=== PATIENT | female | born 1975 | race Caucasian/White ===

== ENCOUNTER 2016-11-21 10:09 | Emergency (ER) | payer OTHER ==
[~2016-11-21] VITALS: Ht 160 cm; Wt 61.2 kg
[2016-11-21 10:22] VITALS: BP 142/81
--- NOTE | 2016-11-21 10:49 | ED UPPER/LOWER EXTREMITY COMPL ---
History of Present Illness General Chief Complaint: Laceration Procedure Stated Complaint: LAC TO LT HAND (FINGER) Source: patient Exam Limitations: no limitations Vital Signs & Intake/Output Vital Signs & Intake/Output Vital Signs Date Time Temp Pulse Resp B/P B/P Pulse O2 O2 Flow FiO2 Mean Ox Delivery Rate 11/21 1022 98.4 87 20 142/81 100 Room Air Allergies Coded Allergies: gluten (Intermediate, GI 11/21/16) Reconcile Medications No Known Home Medications Triage Note: PT TO ED C/O LAC TO LEFT HAND RING FINGER FROM SCISSORS. HAPPENED [employer]. PT WAS CUTTING FLOWER STEMS AND CUT HER FINGER. AVULSION NOTED. BLEEDING NOTED. DRESSING APPLIED. LAST TETANUS SHOT LAST YEAR PER PT. Triage Nurses Notes Reviewed? yes Onset: Abrupt Duration: constant Timing: single episode today Severity: mild Severity Numbers: 2 Method of Injury: laceration : No Patient currently breastfeeds: No HPI: Patient is a 40-year-old female who presents emergency room STATING today while cutting jimenes she accidentally cut the distal tip of her left fourth digit finger resulting in bleeding and the laceration. Currently complains of 3/10 pain. Patient is right arm dominant. Tetanus is up-to-date (LAURYN OLIVERA) Past History Travel History Traveled to [place] past 21 day No Medical History Any Pertinent Medical History? none Surgical History Surgical History: non-contributory Psychosocial History What is your primary language Slovak Tobacco Use: Never used ETOH Use: denies use Illicit Drug Use: denies illicit drug use Family History Hx Contributory? No (LAURYN OLIVERA) Review of Systems Review of Systems Constitutional: Reports: no symptoms. EENTM: Reports: no symptoms. Respiratory: Reports: no symptoms. Cardiovascular: Reports: no symptoms. Gastrointestinal/Abdominal: Reports: no symptoms. Genitourinary: Reports: no symptoms. Musculoskeletal: Reports: see HPI. Skin: Reports: see HPI. Neurological/Psychological: Reports: no symptoms. Hematologic/Endocrine: Reports: see HPI, bleeding. Immunological: Reports: no symptoms. All Other Systems: Reviewed and Negative (LAURYN OLIVERA) Physical Exam Physical Exam General Appearance: no apparent distress, alert, comfortable Neurologic/Tendon: normal sensation, normal motor functions, normal tendon functions, responds to pain, no evidence tendon injury, no pulse deficit Skin: normal color, warm/dry Comments: Well-developed well-nourished no apparent distress. HEENT: Atraumatic, extraocular motion intact Neck: Supple, no lymphadenopathy Back: Nontender Respiratory: No respiratory distress Extremities: No edema, full range of motion Left hand-noted fourth digit distal end date 8 mm superficial mildly gaping clean linear laceration noted no nail involvement Active bleeding noted full active range of motion full resisted range of motion to flexion and extension no tendon deficit Neuro: Alert and oriented x3 Psych: Mood affect normal, normal memory normal judgment. (LAURYN OLIVERA) Progress Differential Diagnosis: arterial insufficiency, compartment syndrome, contusion, dislocation, DVT, fracture, gout, septic arthritis, sprain, tendon injury Plan of Care: Current Medications Sig/[place] Start time Last Medication Dose Stop Time Status Admin Lidocaine 20 ML ONCE ONE 11/21 1100 UNVr (Lidocaine 1%) 11/21 1101 No tendon deficit noted on exam (LAURYN OLIVERA) Departure Departure Disposition: HOME OR SELF CARE Condition: Stable Clinical Impression Primary Impression: Laceration of finger of left hand Referrals: MEGHAN CEVALLOS,MAY Tenorio (PCP/Family) Additional Instructions: As discussed begin to apply bacitracin to the area once a day for the following 4 days then leave finger wound open AND DRY AND clean to improve healing. If you note signs of infection redness, pain, swelling, discharge return to emergency room. Return to the emergency room in 7 days FOR SUTURE removal. Departure Forms: Customer Survey General Discharge Information Prescriptions: Current Visit Scripts No Known Home Medications (LAURYN OLIVERA) PA/CLINICAL PROJECT ASSISTANT Co-Sign Statement Statement: ED Attending supervision documentation- [] I saw and evaluated the patient. I have also reviewed all the pertinent lab results and diagnostic results. I agree with the findings and the plan of care as documented in the PA's/CLINICAL PROJECT ASSISTANT's documentation. x I have reviewed the ED Record and agree with the PA's/CLINICAL PROJECT ASSISTANT's documentation. [] Additions or exceptions (if any) to the PAs/CLINICAL PROJECT ASSISTANT's note and plan are summarized below: [] (BERTA CEVALLOS,DIPAK) Procedures Laceration/Wound Repair Laceration/Wound Repair: Wound Location: upper extremity (RIGHT FOURTH DIGIT) Wound's Depth, Shape: linear, superficial Wound Length (cm): 0.8 Wound Explored: clean, no foreign body removed, irrigated extensively Irrigated w/ Saline (ccs): 300 Betadine Prep? Yes Anesthesia: 1% lidocaine Volume Anesthetic (ccs): 2 Wound Repaired With: sutures Suture Size/Type: 6:0 Number of Sutures: 2 Progress: 2 sutures were placed in which margins were REVISED patient tolerated well bacitracin AND bandage was applied (LAURYN OLIVERA)
== END 2016-11-21 11:38 ==
LOC: ERH 10:09
DX: S61.215A Laceration without foreign body of left ring finger without damage to nail, initial encounter (principal); W27.8XXA Contact with other nonpowered hand tool, initial encounter; Y92.9 Unspecified place or not applicable; Y93.9 Activity, unspecified